=== PATIENT | female | born 1985 | race Caucasian/White ===

== ENCOUNTER → 2016-05-29 | Outpatient (CLI) | payer OTHER | LOC: COL.RAD 11:00 | DX: R10.11 Right upper quadrant pain (principal) | CPT/HCPCS: A9537; J2805 ==

== ENCOUNTER 2017-02-16 10:00 | Inpatient (IN) | payer OTHER ==
[~2017-02-16] VITALS: Ht 162.7 cm; Wt 94.5 kg
[2017-03-31] VITALS (55 sets, daily range): BP systolic 92–138; BP diastolic 54–100; PULSE 77–123; TEMP 98–98.7
[2017-03-31] MEDS ORDERED: PRENATAL1 TA7 PO (07:47)
[2017-03-31 08:26] LABS: BASO # 0.1 (0.0-0.2); BASO % 0.5 % (0.0-2.0); EOS # 0.1 (0.0-0.7); EOS % 0.5 % (0-4.0); GRAN # 7.1 (1.4-6.5); GRAN % 69.2 % (42.2-75.2); HEMATOCRIT 38.8 % (37.0-47.0); HEMOGLOBIN 12.9 g/dl (12.5-16.0); LYMPH # 2.4 (1.2-3.4); LYMPH % 23.1 % (20.0-51.0); MEAN CELL VOLUME 93 fl (80.0-100.0); MEAN CORPUSCULAR HEMOGLOBIN 31 pg (27.0-31.0); MEAN CORPUSCULAR HGB CONC 33 g/dl (33.0-37.0); MEAN PLATELET VOLUME 9.4 fl (7.4-10.4); MONO # 0.6 (0.1-0.6); MONO % 6.1 % (1.7-9.3); PLATELET COUNT 249 K/mm3 (130-400); RED BLOOD COUNT 4.16 M/mm3 (4.10-5.30); WHITE BLOOD COUNT 10.2 K/mm3 (4.8-10.8)
[2017-04-01] VITALS: BP 111/72; PULSE 80
[2017-04-01 08:05] VITALS: BP 102/64; PULSE 82; TEMP 97.9
[2017-04-01 12:30] VITALS: BP 113/65; PULSE 76; TEMP 97.3
[2017-04-01 16:40] VITALS: BP 120/66; PULSE 80; TEMP 97.6
[2017-04-01 21:00] VITALS: BP 102/61; PULSE 84; TEMP 97.9
[2017-04-02 07:41] VITALS: BP 95/57; PULSE 62; TEMP 98.6
[2017-04-02 16:12] VITALS: BP 104/62; PULSE 82; TEMP 98.1
[2017-04-02 21:30] VITALS: BP 112/56; PULSE 88; TEMP 97.9
[2017-04-03 07:45] VITALS: BP 113/70; PULSE 82; TEMP 97.8
[2017-04-03] MEDS ORDERED: IBU800 M1 PO (08:00)
[2017-04-03] MEDS ORDERED: PERCOCET 325 MG1 TA2 PO (08:00)
== END 2017-04-03 13:55 | disposition home or self-care (01) | DRG 766 ==
LOC: OB 10:00 → LDR 03-31 07:03 → OB 03-31 07:03
PROVIDERS: Obstetrics & Gynecology
PROC: 10D00Z1 Extraction of Products of Conception, Low, Open Approach (ICD-10-PCS; principal; 2017-03-31)
DX: O62.1 Secondary uterine inertia (principal); Z3A.39 39 weeks gestation of pregnancy; Z37.0 Single live birth
CPT/HCPCS: J0690; J1885; J2270; J2370; J2400; J2405; J2540; J2590; J7060; J7120

== ENCOUNTER 2018-09-01 08:53 | Emergency (ER) | payer OTHER ==
[~2018-09-01] VITALS: Ht 162.6 cm; Wt 93.2 kg
[~2018-09-01 08:53] MED LIST: IBU800 M1 PO; PERCOCET 325 MG1 TA2 PO; PRENATAL1 TA7 PO
[2018-09-01 08:56] VITALS: BP 140/83; TEMP 98.2
[2018-09-01] MEDS ORDERED: AMOXICILLIN 8751 TAB PO (09:16)
[2018-09-01] MEDS ORDERED: FLONASE NASAL S16 GM NS (09:16)
[2018-09-01 09:45] LABS: COLLECTION METHOD CLEAN CATCH
[2018-09-01 09:52] LABS: PH 6 (5-8); SQUAMOUS EPITHELIAL 0-2 /hpf; URINE APPEARANCE Clear; URINE BACTERIA Rare /hpf; URINE BILIRUBIN Negative (NEGATIVE); URINE BLOOD Negative (NEGATIVE); URINE COLOR Yellow; URINE GLUCOSE Negative (NEGATIVE); URINE KETONE Negative (NEGATIVE); URINE LEUKOCYTE ESTERASE Negative (NEGATIVE); URINE NITRATE Negative (NEGATIVE); URINE PROTEIN(semi-quant) Negative (NEGATIVE); URINE RBC 0-2 /hpf; URINE UROBILINOGEN Negative (NEGATIVE)
[2018-09-01 09:54] LABS: ALBUMIN 4.6 gm/dL (3.5-5.0); BILIRUBIN,TOTAL 0.5 mg/dL (0.0-1.0); C-REACTIVE PROTEIN 1.1 mg/dL (0.0-0.9); CALCIUM 9.6 mg/dL (8.4-10.2); CREATININE, serum 0.74 (0.52-1.25); POTASSIUM 4.1 mmol/L (3.4-5.0); TOTAL PROTEIN 8.3 gm/dL (6.4-8.2)
[2018-09-01 09:57] LABS: BASO % 0.5 % (0.0-2.0); EOS # 0.1 (0.0-0.7); EOS % 0.8 % (0-4.0); GRAN # 3.8 (1.4-6.5); HEMATOCRIT 44.2 % (37.0-47.0); HEMOGLOBIN 14.6 g/dl (12.5-16.0); LYMPH # 1.8 (1.2-3.4); MEAN CELL VOLUME 92 fl (80.0-100.0); MEAN CORPUSCULAR HEMOGLOBIN 31 pg (27.0-31.0); MEAN CORPUSCULAR HGB CONC 33 g/dl (33.0-37.0); MEAN PLATELET VOLUME 9.4 fl (7.4-10.4); MONO # 0.4 (0.1-0.6); MONO % 6.4 % (1.7-9.3); PLATELET COUNT 280 K/mm3 (130-400); RED BLOOD COUNT 4.79 M/mm3 (4.10-5.30); REDCELL DISTRIBUTION WIDTH-CV 13.1 % (11.5-14.5)
[2018-09-01] MEDS ORDERED: ZOFRAN 4MG T4 MG/TAB PO (11:00)
[2018-09-01] MEDS ORDERED: NORCO 325 MG-51 TAB PO (11:00)
[2018-09-01 12:52] VITALS: PULSE 92
== END 2018-09-01 12:52 | disposition home or self-care (01) ==
LOC: COL.ER 08:53
PROVIDERS: Physician Assistant
DX: R10.31 Right lower quadrant pain (principal); Z98.890 Other specified postprocedural states; Z90.49 Acquired absence of other specified parts of digestive tract; Z79.51 Long term (current) use of inhaled steroids
CPT/HCPCS: J1885; J2405; J7030; Q9967

== ENCOUNTER → 2023-05-15 | Outpatient (CLI) | payer BC ==
[~2023-05-15] MED LIST changes: +AMOXICILLIN 8751 TAB PO; +FLONASE NASAL S16 GM NS; +NORCO 325 MG-51 TAB PO; +ZOFRAN 4MG T4 MG/TAB PO
== END ==
LOC: COL.RAD 08:26
DX: K21.9 Gastro-esophageal reflux disease without esophagitis (principal)